=== PATIENT | female | born 1950 | race Caucasian/White ===

== ENCOUNTER 2017-01-06 09:07 | Outpatient (CLI) | payer MEDICARE, OTHER ==
--- NOTE | 2017-01-07 12:41 | Mammography Report ---
DIGITAL SCREENING MAMMOGRAM: 01/06/2017 CLINICAL INDICATION: A 66-year-old for screening. COMPARISON: 03/2015, 02/2014, 07/2010, 05/2009 TECHNIQUE: Routine CC and MLO projections were obtained of the breasts. FINDINGS: The breasts again demonstrate heterogeneously dense fibroglandular parenchyma bilaterally. Coarse and punctate, typically benign calcifications are present. No suspicious masses, clustered microcalcifications, or regions of architectural distortion are identified. IMPRESSION: BENIGN FINDINGS. RECOMMENDATION: Routine annual screening unless otherwise clinically indicated. BIRADS CATEGORY 2 - BENIGN FINDINGS. STANDARD QUALIFYING STATEMENTS 1. This examination was reviewed with the aid of Computer-Aided Detection (CAD). 2. A negative or benign imaging report should not delay biopsy if clinically suspicious findings are present. Consider surgical consultation if warranted. More than 5% of cancers are not identified by i maging. 3. Dense breasts may obscure an underlying neoplasm. JOB #: [id number] EXT JOB #:[id number]
== END 2017-01-06 09:08 | disposition home or self-care (01) ==
LOC: DI.S 09:07
PROVIDERS: ATTEND Family Medicine
DX: Z12.31 Encounter for screening mammogram for malignant neoplasm of breast (principal)
CPT/HCPCS: 77067

== ENCOUNTER 2018-03-12 13:27 | Outpatient (CLI) | payer MEDICARE, OTHER ==
--- NOTE | 2018-03-13 09:08 | Mammography Report ---
Reason: SCREENING MAMMO Procedure Date: 03/12/2018 Accession Number: [id number] / [id number] Procedure: GIOVANNA - Screening Mammo w/Willard CPT Code: FULL RESULT: EXAM: Screening Mammo w/Willard DATE: 03/12/2018 2:03 PM CLINICAL HISTORY: Screening encounter. History of early menses. TECHNIQUE: Bilateral CC and MLO views were obtained. COMPARISON: 01/06/2017 through 02/23/2014. FINDINGS: The breasts demonstrate scattered fibroglandular densities bilaterally. Coarse typically benign calcifications are redemonstrated. No suspicious masses, clustered microcalcifications, or regions of architectural distortion are identified. IMPRESSION: Benign findings RECOMMENDATION: Routine annual screening unless otherwise clinically indicated. BIRADS CATEGORY 2: Benign findings STANDARD QUALIFYING STATEMENTS: 1. This examination was not reviewed with the aid of Computer-Aided Detection (CAD). 2. A negative or benign imaging report should not preclude biopsy if clinically suspicious findings are present. 3. Dense breasts may obscure an underlying neoplasm. 4. This examination was reviewed with the aid of 3D breast imaging (tomosynthesis).
== END 2018-03-12 13:28 | disposition home or self-care (01) ==
LOC: DI 13:27
PROVIDERS: ATTEND Family Medicine
DX: Z12.31 Encounter for screening mammogram for malignant neoplasm of breast (principal)
CPT/HCPCS: 77063; 77067

== ENCOUNTER 2018-03-12 13:32 | Outpatient (CLI) | payer MEDICARE, OTHER ==
--- NOTE | 2018-03-13 09:38 | DEXA Report ---
Reason: SCREENING FOR OSTEOPOROSIS Procedure Date: 03/12/2018 Accession Number: [id number] / [id number] Procedure: DEX - Dexa Spine and/or Hip CPT Code: FULL RESULT: EXAM: Dexa Spine and/or Hip DATE: 03/12/2018 2:15 PM CLINICAL HISTORY: SCREENING FOR OSTEOPOROSIS TECHNIQUE: Dual energy x-ray absorptiometry (DXA) was performed on a [employer] System. Regions measured are the AP Spine, femoral neck, and if needed forearm. COMPARISON: 08/07/2015. In accordance with the International Society for Clinical Densitometry (ISCD) guidelines, data from previous exams may be reanalyzed using current recommendations and techniques. This is done to allow a more accurate basis for comparison with the current study. FINDINGS: The data for the lumbar spine is as follows: BMD (g/cm/cm) T-SCORE Z-SCORE REGION L1 1.023 -0.9 0.4 L2 1.073 -1.1 0.2 L3 1.235 0.3 1.6 L4 1.102 -0.8 0.4 TOTAL 1.111 -0.6 0.7 NOTE: All evaluable vertebrae are used for classification The data for the hip is as follows: BMD (g/cm/cm) T-SCORE Z-SCORE REGION Neck 0.822 -1.6 -0.3 TOTAL 0.893 -0.9 0.1 NOTE: The femoral neck or total proximal femur, whichever is lowest, is used for classification. DXA RESULTS SUMMARY: Spine SCAN DATE AGE BMD CHANGE VS CHANGE VS PREVIOUS PREVIOUS % [birth year]2018 [age] 1.111 0.088* 8.6* 08/07/2015 [age] 1.023 * Denotes significant change at the 95% confidence level. Denotes dissimilar scan types or analysis methods. DXA RESULTS SUMMARY: Hip SCAN DATE AGE BMD CHANGE VS CHANGE VS PREVIOUS PREVIOUS % [birth year]2018 [age] 0.893 -0.022 -2.4 08/07/2015 [age] 0.915 * Denotes significant change at the 95% confidence level. Denotes dissimilar scan types or analysis methods. IMPRESSION: THE WHO CLASSIFICATION BASED ON THE INTERNATIONAL REFERENCE STANDARD IS OSTEOPENIA. THE FRACTURE RISK IS INCREASED. RECOMMENDATION: Patients with diagnosis of osteoporosis or osteopenia should have regular bone mineral density assessment. For those eligible for Medicare, routine testing is allowed once every 2 years. Testing frequency can be increased for patients who have rapidly progressing disease or for those who are receiving medical therapy to restore bone mass. COMMENT: World Health Organization (WHO) definitions for osteoporosis and osteopenia: NORMAL BMD: T-score at -1.0 or higher, fracture risk is low OSTEOPENIA BMD: T-score between -1.0 and -2.5, fracture risk is increased. OSTEOPOROSIS BMD: T-score at -2.5 or lower, fracture risk is high. National Osteoporosis Foundation recommends: 1. Obtain adequate dietary calcium (at least 1200 mg per day) and vitamin D (400-800 international units per day). 2. Participate, as appropriate, in regular weightbearing and muscle-strengthening exercise. 3. Avoid tobacco use and reduce alcohol and caffeine intake. 4. For more detailed information see the website at www.NOF.org.
== END 2018-03-12 13:33 | disposition home or self-care (01) ==
LOC: DI 13:32
PROVIDERS: ATTEND Family Medicine
DX: Z13.820 Encounter for screening for osteoporosis (principal); M85.88 Other specified disorders of bone density and structure, other site; Z78.0 Asymptomatic menopausal state
CPT/HCPCS: 77080

== ENCOUNTER 2018-06-04 08:14 | Outpatient (CLI) | payer MEDICARE, OTHER ==
--- NOTE | 2018-06-04 08:36 | XRAY Report ---
Reason: FEVER,UNSPECIFIED Procedure Date: 06/04/2018 Accession Number: [id number] / [id number] Procedure: XR - Chest 2 View X-Ray CPT Code: 10176 FULL RESULT: EXAM: CHEST RADIOGRAPHY EXAM DATE: 06/04/2018 08:28 AM. CLINICAL HISTORY: Fever, unspecified. COMPARISON: CHEST 2 VIEW PA/LAT 12/01/2013 3:43 PM. TECHNIQUE: 2 views. FINDINGS: Lungs/Pleura: No focal opacities evident. No pleural effusion. No pneumothorax. Normal volumes. Mediastinum: Heart and mediastinal contours are unremarkable. Other: No significant change compared to prior exam. IMPRESSION: Normal 2-view chest radiography. [facility]
== END 2018-06-04 08:15 | disposition home or self-care (01) ==
LOC: DI 08:14
PROVIDERS: ATTEND Nurse Practitioner Family
DX: R50.9 Fever, unspecified (principal)
CPT/HCPCS: 71046

== ENCOUNTER 2018-06-13 21:09 | Emergency (ER) | payer MEDICARE, OTHER ==
--- NOTE | 2018-06-13 21:38 | ED Physician Documentation ---
History of Present Illness - Stated complaint Stated Complaint: FEVER/BACK PX - Chief complaint Chief Complaint: General - History obtained from History obtained from: Patient - Additonal information Additional information: Patient is a 67-year-old female with history of multiple sclerosis, recurrent UTIs, and kidney stones presenting with several hours of bilateral lower back pain and nausea without vomiting, diarrhea, urinary changes, or fever. Patient notes that her last UTI symptoms were about 2 weeks ago and she has completed therapy of Bactrim. Patient also believes that she passed a kidney stone at that time as well. Given her history of MS, patient was on immunosuppression therapy until January 2018. Patient denies any particular improving or worsening factors to her symptoms and otherwise believe she is now again passing a kidney stone. She denies history of requiring lithotripsy, stent placement, or other surgical intervention for her stones. Review of Systems Constitutional: denies: Fever GI: reports: Nausea. denies: Abdominal Pain Musculoskeletal: reports: Back pain PD PAST MEDICAL HISTORY - Past Medical History Cardiovascular: Hypertension : Kidney stones, Other (UTI) Other Past Medical History: Multiple sclerosis - Past Surgical History Past Surgical History: Yes - Present Medications Home Medications: Ambulatory Orders Medication Instructions Recorded Confirmed Amlodipine Besylate 10 mg ORAL DAILY 10/13/13 10/13/13 Amperya 10 mg DAILY 10/13/13 10/13/13 Atorvastatin [Lipitor] 40 mg 10/13/13 10/13/13 - Allergies Allergies/Adverse Reactions: Allergies Allergy/AdvReac Type Severity Reaction Status Date / Time pentobarbital sodium * Allergy Unknown Verified 06/13/18 21:22 [From Nembutal Sodium] ticlopidine HCl * Allergy Unknown Verified 06/13/18 21:22 [From Ticlid] tizanidine HCl * Allergy Unknown Verified 06/13/18 21:22 [From Zanaflex] - Social History Does the pt smoke?: No Smoking Status: Never smoker Does the pt drink ETOH?: Yes Does the pt have substance abuse?: No PD ED PE NORMAL - Vitals Vital signs reviewed: Yes - General General: Alert and oriented X 3, No acute distress, Well developed/nourished - HEENT HEENT: Atraumatic, Moist mucous membranes, Pharynx benign - Cardiac Cardiac: RRR, No murmur - Respiratory Respiratory: No respiratory distress, Clear bilaterally - Abdomen Abdomen: Normal bowel sounds, Soft, Non tender, Non distended - Back Back: No: No CVA TTP (Mild b/l) - Derm Derm: Normal color, Warm and dry, No rash - Extremities Extremities: No deformity, No tenderness to palpate - Neuro Neuro: Alert and oriented X 3, No motor deficit Eye Opening: To Pain - Psych Psych: Normal mood, Normal affect Results - Vitals Vitals: Vital Signs - 24 hr 06/13/18 06/13/18 06/13/18 21:16 22:17 22:50 Temperature 37.3 C 100.2 C H Heart Rate 109 H 90 81 Respiratory 18 16 16 Rate Blood Pressure 132/80 H 133/70 H 128/72 O2 Saturation 97 98 97 Oxygen O2 Source Room air - Labs Labs: Laboratory Tests 06/13/18 06/13/18 06/13/18 21:32 22:30 22:30 WBC 27.4 H RBC 3.84 L Hgb 11.1 L Hct 34.1 L MCV 88.8 MCH 28.9 MCHC 32.6 RDW 14.6 Plt Count 372 MPV 8.1 Neut # (Auto) 25.0 H Lymph # (Auto) 0.9 L [place] # (Auto) 1.4 H Eos # (Auto) 0.1 Baso # (Auto) 0.1 Absolute Nucleated RBC 0.01 Band Neuts % (Manual) Not Reportable Abnorm Lymph % (Manual) Not Reportable Nucleated RBC % 0.0 Neutrophils # (Manual) Not Reportable Lymphocytes # (Manual) Not Reportable Monocytes # (Manual) Not Reportable Eosinophils # (Manual) Not Reportable Basophils # (Manual) Not Reportable Differential Comment MANUAL=AUTO DIFF Manual Slide Review Indicated WBC Morphology 1+ TOXIC GRANULATION Platelet Estimate NORMAL (130-450,000) Platelet Morphology 1+ GIANT PLATELETS RBC Morph Micro Appear NORMAL APPEARANCE Sodium 141 Potassium 4.0 Chloride 104 Carbon Dioxide 25 Anion Gap 12.0 BUN 12 Creatinine 1.2 H Estimated GFR (MDRD) 45 L Glucose 169 H Lactic Acid Calcium 9.2 Total Bilirubin 0.7 AST 23 ALT 19 Alkaline Phosphatase 98 Total Protein 6.5 L Albumin 3.1 L Globulin 3.4 Albumin/Globulin Ratio 0.9 L Lipase 26 Urine Color YELLOW Urine Clarity CLOUDY Urine pH 6.0 Ur Specific [place] 1.010 Urine Protein 30 H Urine Glucose (UA) NEGATIVE Urine Ketones NEGATIVE Urine Occult Blood SMALL H Urine Nitrite POSITIVE H Urine Bilirubin NEGATIVE Urine Urobilinogen 0.2 (NORMAL) Ur Leukocyte Esterase LARGE H Urine RBC 6-10 H Urine WBC >25 H Urine WBC Clumps PRESENT Ur Squamous Epith Cells NONE SEEN Urine Bacteria Many H Ur Microscopic Review INDICATED Urine Culture Comments INDICATED 06/13/18 22:52 WBC RBC Hgb Hct MCV MCH MCHC RDW Plt Count MPV Neut # (Auto) Lymph # (Auto) [place] # (Auto) Eos # (Auto) Baso # (Auto) Absolute Nucleated RBC Band Neuts % (Manual) Abnorm Lymph % (Manual) Nucleated RBC % Neutrophils # (Manual) Lymphocytes # (Manual) Monocytes # (Manual) Eosinophils # (Manual) Basophils # (Manual) Differential Comment Manual Slide Review WBC Morphology Platelet Estimate Platelet Morphology RBC Morph Micro Appear Sodium Potassium Chloride Carbon Dioxide Anion Gap BUN Creatinine Estimated GFR (MDRD) Glucose Lactic Acid 3.4 H* Calcium Total Bilirubin AST ALT Alkaline Phosphatase Total Protein Albumin Globulin Albumin/Globulin Ratio Lipase Urine Color Urine Clarity Urine pH Ur Specific [place] Urine Protein Urine Glucose (UA) Urine Ketones Urine Occult Blood Urine Nitrite Urine Bilirubin Urine Urobilinogen Ur Leukocyte Esterase Urine RBC Urine WBC Urine WBC Clumps Ur Squamous Epith Cells Urine Bacteria Ur Microscopic Review Urine Culture Comments PD MEDICAL DECISION MAKING - ED course Complexity details: reviewed old records, reviewed results, re-evaluated patient, considered differential, d/w patient, d/w family ED course: Patient unfortunately has recurrent history of UTI and kidney stones and feels that her symptoms today are similar to previous. Last known UTI was about 2 weeks ago and treated with Bactrim. Patient does not take any preventative medications for her recurrent UTIs. Physical exam is relatively benign. Patient does have mild bilateral CVA tenderness, but no abdominal tenderness. Patient appears well-hydrated and otherwise comfortable. Did feel appropriate to give IV fluids, Zofran, and Toradol given possible underlying infection and likely kidney stones. Also obtained blood work, urine sample, and CT imaging. Urinalysis return indicative of infection and sent for culture. Lab work returned with significant leukocytosis and upon retaking of her vitals, patient's temperature slightly increasing, although not truly febrile. At this time, do feel that patient could be experiencing more septic-like picture and lactate and blood cultures ordered. Lactate returned positive and patient continued on IV fluid resuscitation. Given likely source of urine, started on antibiotics of IV Rocephin. Given elevated temperature, patient received 1 g IV Tylenol as well. Creatinine slightly elevated at 1.2. Imaging returned concerning with bilateral obstructing stones and bilateral hydronephrosis. Discussed results and recommendations with patient, including transfer for further urology intervention. Patient agreeable to this plan. Patient will be transferred to [facility]. Departure - Departure Disposition: 02 Transfer Acute Care Hosp Clinical Impression: Nephrolithiasis Hydronephrosis Qualifiers: Hydronephrosis type: with renal calculous obstruction Qualified Code(s): N13.2 - Hydronephrosis with renal and ureteral calculous obstruction Condition: Fair
[2018-06-13 21:42] LABS: BILIRUBIN,URINE NEGATIVE (NEGATIVE); CLARITY,URINE CLOUDY (CLEAR); GLUCOSE, URINE (UA) NEGATIVE (NEGATIVE); KETONES,URINE (UA) NEGATIVE (NEGATIVE); LEUKOCYTE ESTERASE, URINE LARGE (NEGATIVE); NITRITE,URINE POSITIVE (NEGATIVE); OCCULT BLOOD,URINE SMALL (NEGATIVE); PROTEIN,URINE 30 mg/dL (NEGATIVE); UROBILINOGEN,URINE 0.2 (NORMAL) E.U./dL (NORMAL)
[2018-06-13] MEDS ORDERED: SODIUM CHLORIDE 0.9% 1,000 ML IV ONE ×2 (21:45→23:25)
[2018-06-13] MEDS ORDERED: KETOROLAC 30 MG/ML VIAL IVP STA (21:46)
[2018-06-13] MEDS ORDERED: ONDANSETRON 4 MG/2 ML VIAL IVP STA (21:46)
[2018-06-13 21:57] LABS: BACTERIA,URINE Many /HPF (None Seen); SQUAMOUS EPITHELIAL CELL,UR NONE SEEN (<= Few); WBC CLUMPS,URINE PRESENT
--- NOTE | 2018-06-13 22:37 | CT Report ---
Reason: hx of kidney stones, b/l back pain Procedure Date: 06/13/2018 Accession Number: [id number] / [id number] Procedure: CT - Abdomen/Pelvis WO CPT Code: FULL RESULT: EXAM: CT ABDOMEN AND PELVIS (CT KUB) EXAM DATE: 06/13/2018 10:06 PM. CLINICAL HISTORY: Bilateral back pain. History of kidney stones. Pain for 6 weeks. Difficulty urinating. Nausea and vomiting tonight. COMPARISONS: None. TECHNIQUE: Routine axial helical CT imaging was performed through the abdomen and pelvis without IV contrast. Reconstructions: Coronal and sagittal. In accordance with CT protocol optimization, one or more of the following dose reduction techniques were utilized for this exam: automated exposure control, adjustment of mA and/or KV based on patient size, or use of iterative reconstructive technique. FINDINGS: Kidneys and Ureters: Moderate bilateral hydroureteronephrosis is noted, secondary to obstructing stones within the mid and distal portions of the ureter. On the left, there is an 8.3 mm stone that measures 1006 HU in density at the midportion of the ureter, just distal to the aortic bifurcation. On the right, the obstructing stone is just distal to the iliac crossing, measuring 5.8 mm (image 108 series 3), with 541 HU in density. No additional right-sided intrarenal stones are noted. There are two punctate stones within the left lower kidney. There is associated bilateral periureteric as well as perinephric fat stranding. Left Kidney/Ureter: No stones. No hydronephrosis or hydroureter. No definite renal mass within the confines of a non-contrast exam. Abdominal Solid Organs: Abdominal parenchymal organs are without significant abnormality within the confines of a noncontrast exam. Bowel: There is a small hiatal hernia noted. No evidence of bowel obstruction. There is moderate sigmoid diverticulosis without evidence of acute diverticulitis. Appendix: The appendix could not be identified with certainty. However, there are no secondary signs of appendicitis demonstrated at this time. Lymph Nodes: No definite pathologic lymphadenopathy. Fluid: No significant ascites. Vasculature: Normal caliber aorta. Moderate aortic and branch vessel atherosclerosis. Pelvis: No bladder stones. Decompressed bladder, precluding assessment. No free fluid or pelvic lymphadenopathy. Bones: No definite suspicious bony lesions demonstrated. Lower Chest: No significant lung base consolidation or effusion. IMPRESSION: 1. Moderate bilateral hydroureteronephrosis secondary to obstructing stones. On the right, the obstructing stone is just distal to the iliac crossing, measuring 5.8 mm, 541 HU in density. On the left, the obstructing stone is at the midportion of the ureter, just distal to the aortic bifurcation level, measuring 8.3 mm and 1006 HU in density. 2. There are two additional punctate stones within the left lower kidney. 3. There is no bowel obstruction demonstrated. Moderate sigmoid diverticulosis without diverticulitis. RAD[facility]
[2018-06-13 22:40] LABS: BASOPHILS # (AUTO) 0.1 10^3/uL (0.0-0.1); BASOPHILS % (AUTO) 0.3 %; EOSINOPHILS # (AUTO) 0.1 10^3/uL (0.0-0.7); EOSINOPHILS % (AUTO) 0.4 %; HGB - HEMOGLOBIN 11.1 g/dL (12.0-16.0); LYMPHOCYTES # (AUTO) 0.9 10^3/uL (1.5-3.5); LYMPHOCYTES % (AUTO) 3.1 %; MEAN CORPUSCULAR HEMOGLOBIN 28.9 pg (27.0-31.0); MEAN CORPUSCULAR HGB CONC 32.6 g/dL (32.0-36.0); MEAN CORPUSCULAR VOLUME 88.8 fL (81.0-99.0); MEAN PLATELET VOLUME 8.1 fL (7.9-10.8); MONOCYTES # (AUTO) 1.4 10^3/uL (0.0-1.0); NEUTROPHILS % (AUTO) 91.2 %; PLT - PLATELET COUNT 372 10^3/uL (130-450); RED BLOOD COUNT 3.84 10^6/uL (4.20-5.40); RED CELL DISTRIBUTION WIDTH 14.6 % (12.0-15.0); WHITE BLOOD COUNT 27.4 x10^3/uL (4.8-10.8)
[2018-06-13] MEDS ORDERED: cefTRIAXone 2 GM in SODIUM CHLORIDE 0.9% MINIBAG 100 ML IV STA (22:40)
[2018-06-13 22:52] LABS: ALBUMIN 3.1 g/dL (3.2-5.5); ALBUMIN/GLOBULIN RATIO 0.9 (1.0-2.2); BILIRUBIN,TOTAL 0.7 mg/dL (0.2-1.0); CALCIUM 9.2 mg/dL (8.5-10.3); CREATININE 1.2 mg/dL (0.4-1.0); TOTAL PROTEIN 6.5 g/dL (6.7-8.2)
[2018-06-13] MEDS ORDERED: ACETAMINOPHEN 1,000 MG/100 ML 100 ML IV ONE (22:59)
[2018-06-13 23:18] LABS: DIFFERENTIAL COMMENT MANUAL=AUTO DIFF; PLATELET ESTIMATE, MANUAL NORMAL (130-450,000) (NORMAL); PLATELET MORPHOLOGY 1+ GIANT PLATELETS (NORMAL); RBC MORPHOLOGY (MULTIPLE) NORMAL APPEARANCE (NORMAL)
[2018-06-14 00:36] VITALS: BP 115/66
[2018-06-14] MEDS ORDERED: fentaNYL 100 MCG/2 ML VIAL IVP STA (00:36)
== END 2018-06-14 01:05 | disposition short-term general hospital (02) ==
LOC: ED 21:09
DX: N13.2 Hydronephrosis with renal and ureteral calculous obstruction (principal); G35 Multiple sclerosis; I10 Essential (primary) hypertension; Z87.440 Personal history of urinary (tract) infections
CPT/HCPCS: 36415; 74176; 80053; 81001; 83605; 83690; 85025; 87040; 87086; 87181; 96361; 96365; 96367; 96375; 99284; J0131; 81003

== ENCOUNTER 2018-06-14 01:01 | Outpatient (CLI) | payer MEDICARE, OTHER | END 2018-06-14 01:02 | disposition short-term general hospital (02) | LOC: EMS 01:01 | PROVIDERS: ATTEND Surgery | DX: N20.0 Calculus of kidney (principal) | CPT/HCPCS: A0425; A0426 ==